=== PATIENT | male | born 1935 | race African-American/Black ===

== ENCOUNTER 2017-05-16 06:14 | Observation (INO) | payer MEDICARE, OTHER ==
[2017-05-16] MEDS ORDERED: NACL 0.9% 500 ML 500 ML ONE ×2 (06:54→14:40)
[2017-05-16] MEDS ORDERED: ECOTRIN PO ONE ×2 (06:55→08:00)
[2017-05-16 07:32] LABS: Basophils % (Auto) 0.5 % (0.0-1.8); Eosinophils # (Auto) 0.2 K/mm3 (0.0-0.4); Eosinophils % (Auto) 3.6 % (0.0-4.3); Hematocrit 37.8 % (35.5-45.6); Hemoglobin 12.9 gm/dl (11.8-15.2); Lymphocytes # (Auto) 1.7 K/mm3 (1.2-5.4); Lymphocytes % (Auto) 34.4 % (13.4-35.0); Mean Corpuscular HGB Conc 34 % (32-34); Mean Corpuscular Hemoglobin 31 pg (28-32); Mean Corpuscular Volume 89 fl (84-94); Monocytes # (Auto) 0.5 K/mm3 (0.0-0.8); Monocytes % (Auto) 9.3 % (0.0-7.3); Platelet Count 130 K/mm3 (140-440); Red Blood Count 4.23 M/mm3 (3.65-5.03); Red Cell Distribution Width 13.5 % (13.2-15.2)
[2017-05-16 07:42] LABS: INR 0.98 (0.87-1.13)
[2017-05-16 07:51] LABS: Calcium 8.7 mg/dL (8.4-10.2)
[2017-05-16] MEDS ORDERED: NACL 0.9% 500 ML 500 ML IV SCH (08:00)
[2017-05-16] MEDS ORDERED: XYLOCAINE 2% INFILTRATI ONE ×2 (09:39→12:54)
[2017-05-16] MEDS ORDERED: HEPARIN/NS 5000 UNIT/500ML(CATH LAB) 1,000 ML IR ONE ×3 (09:39→12:54)
[2017-05-16] MEDS ORDERED: SUBLIMAZE ONE (09:40)
[2017-05-16] MEDS ORDERED: NITROGLYCERIN SYRINGE 3 ML ONE ×2 (09:45→14:45)
[2017-05-16] MEDS ORDERED: CALAN ONE (09:45)
[2017-05-16] MEDS: VERSED ONE ×2 (10:04→14:34)
[2017-05-16] MEDS: HEPARIN 10,000 UNITS/10 ML ONE ×2 (10:07→14:37)
[2017-05-16] MEDS ORDERED: HEPARIN 10,000 UNITS/10 ML ONE (12:54)
--- NOTE | 2017-05-16 13:47 | Cardiac Catherization Report ---
INDICATION FOR PROCEDURE: Shortness of breath. ORDERING PHYSICIAN: Jose G Baker MD PROCEDURES PERFORMED: 1. Selective left and right coronary angiography. 2. Left ventriculography. 3. Right heart catheterization with hemodynamic measurement and oxygen saturation run. DESCRIPTION OF PROCEDURE: After obtaining the consent, the patient was draped using sterile technique. A 2% lidocaine was injected into the right AC. Over a previously inserted intravenous line, a 6-[place]-Jackie catheter was inserted using 6-[place] vascular sheath. Then, 2% lidocaine was injected into the right wrist. A 5-[place] vascular sheath was inserted into the right radial artery. Previously, an Sukhi test was performed and found to be negative with appropriate ulnar flow. A 6-[place]-Jackie catheter was used to measure right-sided hemodynamics and perform an oxygen saturation run. A 6-[place] JL3.5 catheter was used to selectively engage the left coronary artery. A 6-[place] JR4 catheter was used to selectively engage the right coronary artery. A 6-[place] JR4 catheter was used to hand inject a left ventriculogram. No complications occurred during the procedure. Hemostasis was achieved at the end of the procedure using manual pressure. SPECIMEN REMOVED: None. ESTIMATED BLOOD LOSS: Minimal. FINDINGS: HEMODYNAMICS: 1. Mean pulmonary capillary wedge pressure 19 mmHg. 2. Mean pulmonary artery pressure 25 mmHg. Pulmonary artery systolic pressure 36 mmHg and pulmonary artery diastolic pressure 13 mmHg. 3. Right ventricular systolic pressure of 43 mmHg and the right ventricular end-diastolic pressure is 17 mmHg. 4. Mean right atrial pressure 15 mmHg. 5. Aortic pressure was 160/81, LV systolic pressure 159 mmHg, LVEDP 23 mmHg. 6. Pulmonary artery saturation is 73%, right ventricular saturation is 72%, right atrial saturation 74%, superior vena cava saturation 74%, and aortic saturation 94%. 7. Cardiac output 0.54 liter per minute with the cardiac index of 3.71 liter per minute per m sq. CARDIAC STRUCTURES: The left ventricle is normal in size and systolic function with left ventricular ejection fraction measured at 60%. CORONARY ANATOMY: 1. This is a right dominant circulation. 2. There are separate ostia of the LAD and left circumflex artery. 3. There is evidence of a focal stenosis noted in the proximal to mid LAD right at the takeoff of a large first septal clay preparation supervisor. There is a 70-80% luminal compromise in this location. The distal LAD tapers down to a 1 mm vessel. 4. The left circumflex artery is a large caliber vessel. There is evidence of a 70% ostial stenosis of the second obtuse marginal. This is followed by a tubular 50% lesion in the mid segment of the second obtuse marginal. There appears to be a mid PLOM bridging noted. 5. The right coronary artery is dominant. There is evidence of luminal irregularities in the right coronary artery with no obstructive disease. IMPRESSION: 1. A 70-80% proximal LAD lesion. 2. A 70% ostial second obtuse marginal lesion. 3. Mildly elevated left and right-sided filling pressures. 4. Borderline pulmonary hypertension. 5. No evidence of an intracardiac shunt. 6. Preserved cardiac output with normal left ventricular ejection fraction. RECOMMENDATIONS: Proceed with PCI to the proximal LAD and medical therapy to the ostial OM disease. JOB# [id number] LICHA/LYDIA
[2017-05-16] MEDS ORDERED: PLAVIX ONE (15:10)
[2017-05-16] MEDS ORDERED: ALUM-MAG HYDROX-SIMETH 200-200-20MG/5ML ONE (15:10)
[2017-05-16] MEDS ORDERED: ULTRAM PO PRN (15:13)
[2017-05-16] MEDS ORDERED: ZOFRAN IV PRN (15:13)
[2017-05-16] MEDS ORDERED: AMBIEN PO PRN (15:13)
[2017-05-16] MEDS ORDERED: NON-FORMULARY (Doxazosin Mesylate [Doxazosin Mesylate] 8 MG) PO SCH (15:15)
--- NOTE | 2017-05-16 15:19 | Event Note ---
Date: 05/16/17 Outpatient cardiac catheterization was followed by PCI of the LAD in its proximal and mid segments. We will observe overnight post PCI-discharge in am. Imdur 30 and plavix 75 will be added to home meds.
[2017-05-16] MEDS: LASIX PO SCH (16:55)
[2017-05-16] MEDS: IMDUR PO SCH (16:55)
[2017-05-16] MEDS: CARDURA PO SCH (16:56)
[2017-05-16] MEDS: NACL 0.9% 1000 ML 1,000 ML IV SCH (19:14)
[2017-05-16] MEDS ORDERED: NACL 0.9% 1000 ML 1,000 ML ONE (19:14)
--- NOTE | 2017-05-16 21:51 | Cardiac Catherization Report ---
CORONARY ANGIOPLASTY REPORT PROCEDURE: Coronary angioplasty and stenting of the ostium and proximal segments of the LAD. REASON FOR PROCEDURE: The patient is an 82-year-old man, who underwent a cardiac catheterization procedure done earlier today, which demonstrated severe lesions of the ostium of the LAD and the proximal to mid segments. These lesions were focal obstructive lesions that were recommended for coronary intervention. PROCEDURE IN DETAIL: The patient was prepped and draped in a sterile fashion after informed consent. The right femoral artery was entered using Seldinger technique followed by placement of a 6-Turk[place] sheath. We selected a #3 XB guiding catheter and advanced to the left coronary ostium. The left main was short, essentially dual ostia of the LAD and circumflex. The LAD was selectively engaged. A 0.014 inch Swimming Pool Plasterer Helper 50 guidewire was then introduced into the LAD and across both lesional segments. Following wire placement, in a primary stenting maneuver, we deployed a 3.5 x 9 mm drug-eluting stent to the more distal lesion that was located in the proximal to mid segment of the vessel. The stent was inflated to optimal pressures. Following stenting, there was an excellent angiographic result at this lesion. We then turned our attention to the more proximal lesion that was located near the ostium of the vessel. A 4.0 x 8 mm drug-eluting stent was selected for this focal lesion. The stent was then deployed and inflated to optimal pressures. Similarly, post-intervention angiograms revealed an excellent angiographic result at this site, 0 residual stenosis. Procedure was well tolerated by the patient and there were no complications. The catheters and the wires were removed, and the patient was returned to the postprocedure unit in stable condition. The sheath will be removed, and hemostasis achieved using manual compression. Procedure was well tolerated by the patient and there were no complications. CONCLUSION: Successful angioplasty and stenting of the left anterior descending artery. Focal, spot stenting was used for focal lesions at the ostium of the vessel and at the proximal to mid vessel. Excellent angiographic result had no complications. JOB# [id number] JANICE/LYDIA
[2017-05-16] MEDS ORDERED: PRAVACHOL PO SCH (22:00)
[2017-05-16] MEDS: ZESTRIL PO SCH (22:57)
[2017-05-17] MEDS: NACL 0.9% 1000 ML 1,000 ML IV SCH (03:39)
[2017-05-17 04:19] LABS: Basophils % (Auto) 0.4 % (0.0-1.8); Eosinophils # (Auto) 0.1 K/mm3 (0.0-0.4); Eosinophils % (Auto) 1.9 % (0.0-4.3); Hematocrit 34.9 % (35.5-45.6); Hemoglobin 12.1 gm/dl (11.8-15.2); Lymphocytes # (Auto) 1.3 K/mm3 (1.2-5.4); Lymphocytes % (Auto) 25.6 % (13.4-35.0); Mean Corpuscular HGB Conc 35 % (32-34); Mean Corpuscular Hemoglobin 31 pg (28-32); Mean Corpuscular Volume 89 fl (84-94); Monocytes # (Auto) 0.5 K/mm3 (0.0-0.8); Monocytes % (Auto) 9.6 % (0.0-7.3); Platelet Count 122 K/mm3 (140-440); Red Blood Count 3.91 M/mm3 (3.65-5.03); Red Cell Distribution Width 13.6 % (13.2-15.2)
[2017-05-17 04:35] LABS: Creatine Kinase MB 2.2 ng/mL (0.0-4.0)
[2017-05-17 04:38] LABS: BUN/Creatinine Ratio 15; Blood Urea Nitrogen 16 mg/dL (9-20); Calcium 8.1 mg/dL (8.4-10.2); Hemolysis Index 9
[2017-05-17] MEDS ORDERED: SYNTHROID PO SCH (06:00)
--- NOTE | 2017-05-17 09:16 | XRay Report ---
AP CHEST : 05/17/17 CLINICAL: Status post PCI. COMPARISON:None FINDINGS: Cardiomegaly. Large central pulmonary arteries. Mild elevation of left hemidiaphragm. The lungs are normally expanded and clear. No airspace disease or pleural effusion. The bones and soft tissues are unremarkable. IMPRESSION: Cardiomegaly but no CHF.
[2017-05-17] MEDS ORDERED: PLAVIX PO SCH (10:00)
[2017-05-17] MEDS: ZESTRIL PO SCH (10:00)
[2017-05-17] MEDS ORDERED: K-DUR PO SCH (10:00)
[2017-05-17] MEDS ORDERED: NON-FORMULARY (Potassium Chloride [Klor-Con 10] 10 MEQ) PO SCH (10:00)
[2017-05-17] MEDS ORDERED: NON-FORMULARY (Simvastatin [Simvastatin] 40 MG) PO SCH (10:00)
[2017-05-17] MEDS ORDERED: HALFPRIN EC PO SCH (10:00)
--- NOTE | 2017-05-17 11:32 | Discharge Summary ---
Short Stay Discharge Plan Activity: advance as tolerated Weight Bearing Status: Partial Weight Bearing Diet: low fat, low cholesterol, low salt, diabetic Wound: keep clean and dry Special Instructions: no heavy lifting (3 days), hold Metformin (48 hrs only) Follow up with: THAIS SYLVESTER MD [Primary Care Provider] - 7 Days LU METZGER MD [Staff Physician] - 7 Days Prescriptions: Clopidogrel Bisulfate [Plavix] 75 mg PO QDAY #30 tablet ISOSORBIDE MONOnitrate [Imdur ER] 30 mg PO DAILY #30 tab.er.24h
[2017-05-17] MEDS: IMDUR PO SCH (11:55)
[2017-05-17] MEDS: LASIX PO SCH (11:56)
[2017-05-17] MEDS: CARDURA PO SCH (11:56)
[2017-05-17 12:55] VITALS: BP 132/56
== END 2017-05-17 14:38 | disposition home or self-care (01) ==
LOC: CATHLABREC 06:14 → EDBD 06:14 → 4A 15:13
PROVIDERS: ADMIT Internal Medicine Cardiovascular Disease; ATTEND Internal Medicine
DX: I49.5 Sick sinus syndrome (principal); R06.02 Shortness of breath; I50.33 Acute on chronic diastolic (congestive) heart failure; I31.3 Pericardial effusion (noninflammatory); E03.9 Hypothyroidism, unspecified; E78.5 Hyperlipidemia, unspecified; I10 Essential (primary) hypertension; G47.30 Sleep apnea, unspecified; Z98.61 Coronary angioplasty status
CPT/HCPCS: 36415; 71010; 80048; 82550; 82553; 84484; 85025; 85347; 85610; 85730; 93005; 93010; 93460; A9270; C1769; C1874; C1887; C1894; C9600; G0378; J1644; J2250; J3010; J7030; J7040; 92928; 96374; Q9967